=== PATIENT | female | born 1955 | race Caucasian/White ===

== ENCOUNTER → 2017-08-16 | Outpatient (CLI) | payer BC ==
[~2017-08-16] MED LIST: B VITAMINS PO; FLEXERIL10 MG PO; LISINOPRIL20 MG PO; LORTAB 5/500 501 TAB PO; MOTRIN 800800 MG/TAB PO; OYSCO 500500 M1 PO; PREMARIN0.45 MG PO; PREMARIN0.625 MG PO; PRILOSEC 20MG20 MG PO; RIFADIN300 MG PO; SINGULAIR; TRAMADOL50 MG PO; TYLENOL 500MG500 MG PO; VICODIN 5/5001 UDTAB PO; VITAMIN B COMPL1 T16 PO; VITAMIN D1000 IU PO; VITAMIN E 400 U4001 PO; VITAMIN E PO; VITAMINC1000TA; ZYRTEC5 MG PO
== END ==
LOC: MC.RAD 07-12 16:00
DX: Z12.31 Encounter for screening mammogram for malignant neoplasm of breast (principal); R92.8 Other abnormal and inconclusive findings on diagnostic imaging of breast

== ENCOUNTER → 2017-08-19 | Outpatient (CLI) | payer BC | LOC: MC.RAD 07:20 | DX: N64.89 Other specified disorders of breast (principal) ==

== ENCOUNTER → 2018-02-17 | Outpatient (CLI) | payer BC | LOC: MC.RAD 13:00 | DX: N64.89 Other specified disorders of breast (principal) ==

== ENCOUNTER → 2018-08-23 | Outpatient (CLI) | payer BC | LOC: MC.RAD 08-21 08:00 | DX: Z12.31 Encounter for screening mammogram for malignant neoplasm of breast (principal) | CPT/HCPCS: G0279 ==

== ENCOUNTER → 2019-09-25 | Outpatient (CLI) | payer BC | LOC: MC.RAD 13:38 | DX: Z12.31 Encounter for screening mammogram for malignant neoplasm of breast (principal) ==

== ENCOUNTER → 2020-04-04 | Outpatient (CLI) | payer BC | LOC: COL.RAD 07:54 | DX: K76.9 Liver disease, unspecified (principal); Z90.49 Acquired absence of other specified parts of digestive tract | CPT/HCPCS: Q9967 ==

== ENCOUNTER → 2020-09-26 | Outpatient (CLI) | payer BC | LOC: MC.RAD 14:14 | DX: Z12.31 Encounter for screening mammogram for malignant neoplasm of breast (principal) ==

== ENCOUNTER → 2022-01-13 | Outpatient (CLI) | payer BC | LOC: MC.RAD 01-08 10:15 | DX: Z12.31 Encounter for screening mammogram for malignant neoplasm of breast (principal) ==

== ENCOUNTER → 2024-02-15 | Outpatient (CLI) | payer BC | LOC: MC.RAD 12:50 | DX: Z12.31 Encounter for screening mammogram for malignant neoplasm of breast (principal) ==